=== PATIENT | female | born 1940 | race Caucasian/White ===

== ENCOUNTER → 2017-06-06 | Outpatient (CLI) | payer OTHER, MEDICARE ==
[~2017-06-06] VITALS: Ht 157.5 cm; Wt 53.8 kg
[~2017-06-06] MED LIST: ACETAMINOPHEN325 M1 PO; ALEVE220 MG PO; AMLODIPINE BESYL5 MG PO; ASPIRIN EC81 M1 PO; CARDIZEM CD120 MG PO; CENTRUM SILVER1 EAC4 PO; CIPROFLOXACIN500 M1 PO; CIPROFLOXACIN500 M3 PO; CLONAZEPAM 0.50.5 M1 PO; CYCLOBENZAPRINE5 MG PO; GLUCOSAMIN-CHO1 EACH PO; K-DUR 20 MEQ T20 MEQ PO; LEVOTHYROXIN0.088 MG PO; LOPERAMIDE 2 MG2 M1 PO; MULTIVITAMINS PO; NAPROSYN500 MG PO; PRED FORTE 1% EY5 M1 OP; PREDNISONE 10 M10 M1; PROZAC 20 MG20 M1 PO; TYLENOL325 MG PO; XANAX 0.25 MG0.25 MG PO; ZOCOR 20 MG TAB20 M1 PO
--- NOTE | ~2017-06-06 | S ---
[facility] [place] [address] SURGICAL PATH RPT PROCEDURE Name: THERESE NI Room #: REG [facility] Jenny.#: [id number] Admission: 06/06/17 Date of : 40 Discharge: Report #: [id number] Path Case #: [id number] PATHOLOGY REPORT COLLECTION DATE: 06/06/2017 RECEIVED DATE: 06/06/2017 SUBMITTING PHYS: Dr. Narciso Layton OTHER PHYS: Dr. Morean Ortega SPECIMEN(S) RECEIVED: A.Bx of gastritis * * * * * * * * * * * * FINAL DIAGNOSIS: Gastric mucosa, gastritis, endoscopic biopsy: - Moderate reactive gastropathy. - Negative for intestinal metaplasia or atrophy. - Negative for Helicobacter pylori. COMMENT: Helicobacter pylori immunohistochemical stain performed on block A1 - negative. (IUV:mml; 06/08/2017) PATHOLOGIST: Sparkle Unger M.D. REPORT ELECTRONICALLY SIGNED BY: Sparkle Unger M.D. DATE/TIME: 06/08/2017 16:24 * * * * * * * * * * * * GROSS PATHOLOGY: Received in formalin labeled "Therese Ni, biopsy of gastritis," are five segments of donnelly soft tissue measuring 0.7 x 0.6 x 0.3 cm in aggregate dimensions and ranging from 0.2 to 0.3 cm in maximum dimension. The specimen is submitted entirely in cassette A1. ([facility]; 06/07/2017) CLINICAL HISTORY: Dysphagia INITIAL CPT CODE(S): A; 38796, 38880 Professional services performed by [facility] at [facility] [address], [place] [address] [facility] [address] [place] [place] [address] SURGICAL PATH RPT PROCEDURE Name: THERESE NI Room #: REG LIZETTE Owens#: [id number] Admission: 06/06/17 Date of : 40 Discharge: Report #: [id number] Path Case #: [id number] [facility] at [address] [place] [address], [facility] [address] [address]. [facility] [address] [place] [address] PHONE: [phone] DIRECTOR: Randal Santillan M.D. * * * END OF REPORT * * *
--- NOTE | ~2017-06-06 | P ---
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 PREOPERATIVE DIAGNOSIS: Solid food dysphagia. POSTOPERATIVE DIAGNOSES: 1. Grade C erosive esophagitis. 2. Mild Schatzki ring. 3. Diffuse gastritis with antral erosions. MEDICATIONS: Deep sedation with propofol per anesthesia. SPECIMEN: Biopsies of gastritis. ESTIMATED BLOOD LOSS: 3 mL. PROCEDURE: EGD with biopsy and Lofton dilation. FINDINGS: Prior to propofol sedation, procedure of upper endoscopy and biopsy and dilation was discussed with the patient as well as potential risks and its complications. She indicates she understands and desires to proceed. DESCRIPTION OF PROCEDURE: With the patient in left lateral decubitus position, the [employer] video endoscope was inserted in the cervical esophagus under direct vision without difficulty. Examination of this organ through its entire length revealed normal esophageal mucosa down into the distal esophagus. In the distal body, an occasional small erosion was seen. There was no evidence of Sage mucosa. The squamocolumnar junction was inspected and there was noted to be erosions reaching between at least 2 gastric folds consistent with grade C esophagitis. Intermittently, a mild Schatzki ring could be seen. A significant hiatus hernia was not seen. Scope was advanced in the stomach, which was examined on end view as well as retroflexed views. There was erythema in the antrum, but there were also erosions in the prepyloric antrum. Biopsies obtained to evaluate for H. pylori. No ulcers were seen. Upon retroflexion, no mass lesions were seen in the proximal stomach. The pylorus, duodenal bulb and postbulbar sweep were inspected and noted to be within normal limits. At that [facility] [address] [place] [address] PROCEDURE REPORT Name: RUSSCOLTON Room #: REG [facility] Jenny.#: [id number] Admission: 06/06/17 Attend Phys: Narciso Layton MD Discharge: Date of : 40 Report #: [id number] point, the scope was slowly withdrawn and careful circumferential views confirmed the above findings. The patient tolerated the procedure well. Following the procedure, she was dilated with passage of a 50-Upper Sorbian Lofton dilator. There was no resistance. CONDITION OF THE PATIENT UPON DISCHARGE: Following procedure, the patient drowsy, aroused, conversant and will be discharged home when fully ambulatory. INSTRUCTIONS TO THE PATIENT AND FAMILY AT THE TIME OF DISCHARGE: She was dilated as described. Would anticipate improvement towards troubles with swallowing. We will follow up on biopsies and make further recommendations. I suggest she start omeprazole 20 mg daily for 6 weeks. Thereafter, she may take on an as needed basis for treatment of reflux symptoms. She is to return for dilation of stricture of her ring on an as needed basis. The patient with dysphagia. She is found to have a ring as noted above. I would anticipate improvement in symptoms following dilation and dilation can be repeated as needed. She will return to the care of Dr. Morena Ortega and return to see me as needed. In addition, advised the patient discontinue smoking which may be a factor, but I think it is unlikely she will ever quit smoking. <ELECTRONICALLY SIGNED> By: Narciso Layton MD 06/07/17 0744 [id number] Narciso Layton MD /nt
== END ==
LOC: GI 06:57
DX: R13.19 Other dysphagia (principal); K22.10 Ulcer of esophagus without bleeding; K22.2 Esophageal obstruction; K25.3 Acute gastric ulcer without hemorrhage or perforation; F17.210 Nicotine dependence, cigarettes, uncomplicated; I10 Essential (primary) hypertension; F32.9 Major depressive disorder, single episode, unspecified; E78.00 Pure hypercholesterolemia, unspecified; Z88.0 Allergy status to penicillin; Z88.2 Allergy status to sulfonamides; Z88.5 Allergy status to narcotic agent; Z88.8 Allergy status to other drugs, medicaments and biological substances; Z79.899 Other long term (current) drug therapy; Z90.710 Acquired absence of both cervix and uterus; Z90.49 Acquired absence of other specified parts of digestive tract; Z85.850 Personal history of malignant neoplasm of thyroid; Z85.828 Personal history of other malignant neoplasm of skin
CPT/HCPCS: 62110; 62900

== ENCOUNTER 2019-08-23 15:57 | Emergency (ER) | payer OTHER, MEDICARE ==
[~2019-08-23] VITALS: Ht 170.2 cm; Wt 59.0 kg
[2019-08-23 16:44] LABS: ABSOLUTE NEUTROPHILS 3.3 thou/uL (1.4-8.2); BASOPHILS 0.9 % (0.0-2.0); EOSINOPHILS 1.5 % (0.0-3.0); HEMATOCRIT 41.5 % (37.0-47.0); HEMOGLOBIN 13.8 gm/dL (12.0-15.0); LYMPHOCYTES 35.9 % (24.0-44.0); MCH 32.9 pg (26.0-34.0); MCHC 33.2 g/dL (28.0-37.0); MONOCYTES 6.4 % (1.0-8.0); PLATELET COUNT 217 thou/uL (150-400); POLYS 55.3 % (36.0-66.0); RBC 4.19 mil/uL (4.20-5.00); RDW 14.8 % (10.5-14.5); WBC 5.9 thou/uL (4.0-11.0)
[2019-08-23 16:52] LABS: ANION GAP 7 mmol/L (7-16); BUN 12 mg/dL (7-18); CHLORIDE 105 mmol/L (98-107); CO2 28 mmol/L (21-32); CREATININE 0.9 mg/dL (0.6-1.0); GLUCOSE 81 mg/dL (74-106); SODIUM 140 mmol/L (136-145)
[2019-08-23 17:02] LABS: ALBUMIN 3.4 g/dL (3.4-5.0); MAGNESIUM 1.9 mg/dL (1.8-2.4); SGOT 38 U/L (15-37); SGPT 19 U/L (30-65); TOTAL BILIRUBIN 0.5 mg/dL (<0.1-1.0); TOTAL PROTEIN 7.1 g/dL (6.4-8.2); TROPONIN-I <0.06 ng/mL (<0.06)
[2019-08-23 17:30] VITALS: BP 122/78
--- NOTE | 2019-08-24 08:01 | EKG ---
[place] [address] [facility] [employer] [place] [address] ELECTROCARDIOGRAM REPORT Name: COLTON SOLANO [facility] [id number] Admission: 08/23/19 Attend Phys: Discharge: 08/23/19 Date of : 40 Report #: [id number] THIS REPORT FOR: //name// [facility] ED Test Date: 2019-08-23 Test Time: 16:03:18 Pat Name: COLTON SOLANO Department: Room: Gender: F Medical Receptionist: WG : 1940 Requested By: Elbert Littlejohn Order Number: [id number] MD: Edis Loaiza Measurements Intervals [place] Rate: 82 P: 66 AK: 149 QRS: -62 QRSD: 129 T: 41 QT: 400 QTc: 468 Interpretive Statements Sinus rhythm RBBB and LAFB Compared to ECG 04/16/2012 20:35:44 Sinus tachycardia no longer present Electronically Signed On 08-24-2019 8:01:23 CDT by Edis Loaiza [email or web address] <ELECTRONICALLY SIGNED> By: Edis Loaiza MD, [facility] 08/24/19 0801 1603 02 Edis Loaiza MD, FACC /EPI
== END 2019-08-23 17:30 | disposition home or self-care (01) ==
LOC: ER 15:57
PROVIDERS: Emergency Medicine
DX: R00.2 Palpitations (principal); E78.5 Hyperlipidemia, unspecified; F41.9 Anxiety disorder, unspecified; F32.9 Major depressive disorder, single episode, unspecified; Z90.710 Acquired absence of both cervix and uterus; Z90.49 Acquired absence of other specified parts of digestive tract; Z87.891 Personal history of nicotine dependence; Z85.828 Personal history of other malignant neoplasm of skin; Z88.0 Allergy status to penicillin; Z88.2 Allergy status to sulfonamides; Z88.6 Allergy status to analgesic agent; Z88.8 Allergy status to other drugs, medicaments and biological substances